=== PATIENT | male | born 1960 ===

== ENCOUNTER 2021-10-02 08:00 | Inpatient (IN) | payer OTHER ==
[~2021-10-02] VITALS: Ht 170.2 cm; Wt 59.0 kg
[2021-11-10] MEDS ORDERED: CLONAZEPAM0.5 MG PO (15:39)
[2021-11-10] MEDS ORDERED: ULTRAM50 MG PO (15:40)
== END 2021-11-10 17:10 | disposition home or self-care (01) | DRG 329 ==
LOC: SURH 10-27 07:00 → O/R 10-27 08:24 → SURG 10-27 08:24 → SURH 10-27 11:30 → SURG 10-27 17:52 → SURH 11-08 10:23
PROVIDERS: ADMIT Surgery; ATTEND Surgery
PROC: 0DTN4ZZ Resection of Sigmoid Colon, Percutaneous Endoscopic Approach (ICD-10-PCS; 2021-10-27)
PROC: 0DJD8ZZ Inspection of Lower Intestinal Tract, Via Natural or Artificial Opening Endoscopic (ICD-10-PCS; 2021-10-27)
PROC: BW21YZZ Computerized Tomography (CT Scan) of Abdomen and Pelvis using Other Contrast (ICD-10-PCS; 2021-10-27)
PROC: 0DBP4ZZ Excision of Rectum, Percutaneous Endoscopic Approach (ICD-10-PCS; principal; 2021-10-27 07:00)
PROC: 30233N1 Transfusion of Nonautologous Red Blood Cells into Peripheral Vein, Percutaneous Approach (ICD-10-PCS; 2021-10-29)
PROC: 02HV33Z Insertion of Infusion Device into Superior Vena Cava, Percutaneous Approach (ICD-10-PCS; 2021-10-30)
PROC: 4A12X4Z Monitoring of Cardiac Electrical Activity, External Approach (ICD-10-PCS; 2021-10-30)
PROC: BW21YZZ Computerized Tomography (CT Scan) of Abdomen and Pelvis using Other Contrast (ICD-10-PCS; 2021-11-06)
PROC: 0W9J3ZX Drainage of Pelvic Cavity, Percutaneous Approach, Diagnostic (ICD-10-PCS; 2021-11-07)
DX: K57.20 Diverticulitis of large intestine with perforation and abscess without bleeding (principal); J18.9 Pneumonia, unspecified organism; J95.89 Other postprocedural complications and disorders of respiratory system, not elsewhere classified; D62 Acute posthemorrhagic anemia; J90 Pleural effusion, not elsewhere classified; K91.870 Postprocedural hematoma of a digestive system organ or structure following a digestive system procedure; R09.02 Hypoxemia; Y95 Nosocomial condition; Z86.010 Personal history of colon polyps; I10 Essential (primary) hypertension; Z20.822 Contact with and (suspected) exposure to COVID-19; F17.200 Nicotine dependence, unspecified, uncomplicated; J44.9 Chronic obstructive pulmonary disease, unspecified; Z87.74 Personal history of (corrected) congenital malformations of heart and circulatory system